=== PATIENT | female | born 1945 | race Caucasian/White ===

== ENCOUNTER 2017-01-15 09:55 | Emergency (ER) | payer MEDICARE, BC ==
--- NOTE | 2017-01-15 11:25 | CT REPORT ---
HISTORY: Headache. COMPARISON: None. TECHNIQUE: Axial non-contrast images obtained from skull vertex through foramen magnum. Dose reduction technique was utilized. FINDINGS: The ventricles, sulci and cisterns are prominent, suggesting mild cerebral atrophy. There are a few, scattered foci of low attenuation within the periventricular and subcortical white matter which are n onspecific in appearance. There is no extra axial fluid collection. No intra-axial hemorrhage is seen . There is no hydrocephalus. No mass lesion is identified. Clark white differentiation adequate, the re is no infarction. No midline shift is identified. The paranasal sinuses are clear. The mastoids appear well aerated. The bones and soft tissues appear unremarkable. IMPRESSION: Scattered foci of low attenuation within the subcortical and periventricular white matter are nonspec ific in appearance, but likely reflect the sequela of small vessel ischemic disease in a patient of t his age. Mild cerebral atrophy. No evidence of acute intracranial hemorrhage or large vessel acute territorial infarct. Final Electronic Signature: This report was electronically signed by Jose A Mireles MD on 01/16/20 17 11:23 AM. estela /
[2017-01-15 11:28] LABS: BASOPHIL# 0.1 X 10^3uL (0.0-0.1); BASOPHILS 1.3 % (0.0-2.0); EOSINOPHILS 5.4 % (0.0-6.0); EOSINOPHILS# 0.2 X 10^3uL (0.0-0.4); HEMATOCRIT 50.8 % (36.0-48.0); HEMOGLOBIN 17.8 g/dL (12.0-16.0); LYMPHOCYTES# 2.2 X 10^3uL (0.8-3.8); MEAN CELL VOLUME 88.4 fL (80.0-100.0); MEAN CORPUS. HGB CONCENTRATION 35.1 g/dL (32.0-36.0); MEAN PLATELET VOLUME 8.1 fL (7.4-10.4); MONOCYTES 7.8 % (2.0-10.0); MONOCYTES# 0.4 X 10^3uL (0.2-1.0); NEUTROPHILS 34.5 % (54.0-75.0); NEUTROPHILS# 1.6 X 10^3uL (2.6-6.7); RED BLOOD COUNT 5.75 X 10^6uL (4.20-6.10); RED CELL DISTRIBUTION WIDTH 13.4 % (11.5-14.5); WHITE BLOOD COUNT 4.5 X 10^3uL (3.9-10.7)
[2017-01-15 11:37] LABS: A/G RATIO 1.2; ALBUMIN 4.6 g/dL (3.5-5.0); BILIRUBIN, TOTAL 0.7 mg/dL (0.2-1.3); CALCIUM 9.5 mg/dL (8.4-10.2); CREATININE 1.1 mg/dL (0.5-1.0); POTASSIUM 4.7 mmol/L (3.5-5.1); TOTAL PROTEIN 8.4 g/dL (6.3-8.2)
--- NOTE | 2017-01-15 13:02 | ER PHYSICIAN DOCUMENTATION ---
Physician Documentation [facility] Name:Kiara Gallagher Age:71 yrs Sex:Female :1945 Arrival Date:01/15/2017 Time:09:55 Bed5 Private MD:Elvin Welch ED, Tom Disposition: 01/15/17 12:54 Discharged to Home/Self Care. Impression: Acute Headache, Dehydration. - Condition is Good. - Discharge Instructions: HEADACHE, Unspecified. - Medical Reconciliation form form. - Follow up: Elvin Welch DO; When: 2 - 3 days; Reason: Recheck today's complaints, Continuance of care. - Problem is new. - Symptoms are unchanged. - Notes: Drink plenty of fluids. HPI: 01/15 10:30 This 71 yrs old Female presents to ER via Private Vehicle with complaints of tl1 HEAD PRESSURE, Dizziness. 10:30 The patient presents with lightheadedness. Associated signs and symptoms: Pertinent tl1 positives: headache, nausea. 11:03 She is a vague historian. History obtained with the help of her . She was well tl1 until 2 nights ago when she had the abrupt onset of a sever bitemporal throbbing pain which kept her up all night. The headache subsided somewhat yesterday, but bothered her again last night and b/c of the persistence, along with some nausea, poor po intake and lightheadedness on standing she his BIB her for eval. No trauma. No f/c/s. No new abrupt visual changes, gait problems or spinning sensation. No jaw claudication. No hearing problems or tinnitus. PCP is Dr Welch. Denies prior brain imaging. She and her are concerned about possible dementia.. Historical: - Allergies: No known drug Allergies; - Home Meds: 1. Lyrica Oral 2. Percocet Oral 3. Zoloft Oral - PMHx: ARTHRITIS; fibermyalgia; HYPOTHYROIDISM; - Ebola Screening: : Patient denies exposure to infectious person. Patient denies travel to an Ebola-affected area in the 21 days before illness onset. . - Immunization history: Pneumococcal vaccine status is unknown. ROS: 11:09 Neuro: Positive for headache. tl1 11:09 All other systems are negative. Exam: 11:10 Constitutional: This is a well developed, well nourished patient who is awake, alert, tl1 and in no acute distress. Head/Face: Normocephalic, atraumatic. Eyes: Pupils equal round and reactive to light, extra-ocular motions intact. Lids and lashes normal. Conjunctiva and sclera are non-icteric and not injected. Cornea within normal limits. Periorbital areas with no swelling, redness, or edema. ENT: Nares patent. No nasal discharge, no septal abnormalities noted. Tympanic membranes are normal and external auditory canals are clear. Oropharynx with no redness, swelling, or masses, exudates, or evidence of obstruction, uvula midline. Mucous membranes moist. Neck: Trachea midline, no thyromegaly or masses palpated, and no cervical lymphadenopathy. Supple, full range of motion without nuchal rigidity, or vertebral point tenderness. No Meningismus. Cardiovascular: Regular rate and rhythm with a normal S1 and S2. No gallops, murmurs, or rubs. Normal PMI, no JVD. No pulse deficits. Respiratory: Lungs have equal breath sounds bilaterally, clear to auscultation and percussion. No rales, rhonchi or wheezes noted. No increased work of breathing, no retractions or nasal flaring. Abdomen/GI: Soft, non-tender, with normal bowel sounds. No distension or tympany. No guarding or rebound. No evidence of tenderness throughout. 11:10 Skin: Warm, dry with normal turgor. Normal color with no rashes, no lesions, and no tl1 evidence of cellulitis. 11:10 Neuro: Orientation: appropriate for stated age, to person, place, time & situation. Mentation: appropriate for stated age, lucid, Memory: recent memory is impaired, Cranial nerves: grossly normal, Cerebellar function: normal finger to nose testing, Motor: moves all fours, strength is 5/5 in the right hand, left hand, right foot and left foot, Sensation: is normal, Gait: is steady. Vital Signs: 10:15 BP 141 / 90; Pulse 68; Resp 16; Temp 97.2; Pulse Ox 93% on R/A; Pain 4/10; st 12:26 BP 158 / 79; Pulse 93; Pulse Ox 98% ; st MDM: 10:40 Patient medically screened. tl1 11:11 Differential diagnosis: CVA, head injury, idiopathic dizziness, TIA, vertigo, ICH, tl1 tumor, dural venous thrombosis.. Doubt meningitis.. Data reviewed: vital signs, nurses notes, radiologic studies, CT scan, and as a result, I will discharge patient. Counseling: I had a detailed discussion with the patient and/or guardian regarding: the historical points, exam findings, and any diagnostic results supporting the discharge/admit diagnosis, lab results, the need for outpatient follow up, to return to the emergency department if symptoms worsen or persist or if there are any questions or concerns that arise at home. 01/15 11:29 Order name: CBC AUTO DIF, MDIF/RMOR IF IND; Complete Time: 12:23 EDMS 01/15 12:03 Interpretation: WHITE BLOOD COUNT 4.5; HEMOGLOBIN 17.8; HEMATOCRIT 50.8; PLATELET COUNT tl1 257. 01/15 11:38 Order name: COMPREHENSIVE METABOLIC PANEL; Complete Time: 12:23 EDMS 01/15 12:03 Interpretation: SODIUM 139; POTASSIUM 4.7; CHLORIDE 103; CARBON DIOXIDE 25; GLUCOSE 98; tl1 BLOOD UREA NITROGEN 22; CREATININE 1.1. 01/15 11:26 Order name: CAT SCAN; HEAD W/O CON [id number]; Complete Time: 12:23 EDMS 01/15 23:08 Interpretation: NAD. Changes consistent with ageing. Chronic white matter changes and tl1 mild atrophy. Dispensed Medications: 11: Drug: NS 0.9% 500 ml; Route: IV; Rate: bolus; Site: right antecubital; st 11:47 Follow up: IV Status: Completed infusion; IV Intake: 700ml st 12:03 Drug: NS 0.9% 500 ml; Route: IV; Rate: bolus; Site: right antecubital; st 12:27 Follow up: IV Status: Completed infusion; IV Intake: 300ml st Signatures: Kristi Feldman, RN Hossein Fowler MD MD tl1
--- NOTE | 2017-01-15 13:02 | ER NURSING DOCUMENTATION ---
Nurse's Notes [facility] Name:Kiara Gallagher Age:71 yrs Sex:Female :1945 Arrival Date:01/15/2017 Time:09:55 Bed5 Private MD:Elvin Welch Diagnosis:Acute Headache;Dehydration Presentation: 01/15 10:06 Presenting complaint: Patient states: pt has a bad headache that started yesterday. she st has had some vision blurring on and off. pt denies any weakness however her lower extremities are weak on assessment. Transition of care: Home. 10:06 Acuity: LATRICE 2 st 10:06 Method Of Arrival: Private Vehicle st Triage Assessment: 10:12 General: Appears in no apparent distress, Behavior is cooperative. Pain: Complains of st pain in base of the skull Pain currently is 4 out of 10 on a pain scale. Pain began 1 day ago. EENT: Eyes eyes are able to fallow a finger with out any troubles. . pt states she has had some blurred vision but does not at this point in time. . Neuro: Level of Consciousness is awake, alert, Oriented to person, place, time, event, Label Cutter are equal bilaterally pt has weak leg lifts and weak foot pushes and pulls. pt denies any new weakness. . Cardiovascular: No deficits noted. Respiratory: No deficits noted. GI: No deficits noted. Historical: - Allergies: No known drug Allergies; - Home Meds: 1. Lyrica Oral 2. Percocet Oral 3. Zoloft Oral - PMHx: ARTHRITIS; fibermyalgia; HYPOTHYROIDISM; - Ebola Screening: : Patient denies exposure to infectious person. Patient denies travel to an Ebola-affected area in the 21 days before illness onset. . - Immunization history: Pneumococcal vaccine status is unknown. Screenin:16 Infectious Disease Risk None. Abuse screen: Denies threats or abuse. Denies injuries st from another. Nutritional screening: No deficits noted. Assessment: 11:48 General: pt states her pain is coming back. that is is about a 4/10.. st Vital Signs: 10:15 BP 141 / 90; Pulse 68; Resp 16; Temp 97.2; Pulse Ox 93% on R/A; Pain 4/10; st 12:26 BP 158 / 79; Pulse 93; Pulse Ox 98% ; st ED Course: 09:57 Patient arrived in ED. ama 09:57 Elvin Welch DO is Private Physician. ama 10:06 Kristi Feldman RN is Primary Nurse. st 10:[address] 10:16 Valuables Remains with patient Patient has correct armband on for positive st identification. Bed in low position. 10:41 Hossein Geiger MD is Attending Physician. tl1 11:[address] pm1 11:13 Patient [address] back from [address]. pm1 11:20 Inserted peripheral IV: 20 gauge in right antecubital area and blood collected. st 12:54 Elvin Welch DO is Referral Physician. tl1 Administered Medications: 11:27 Drug: NS 0.9% 500 ml; Route: IV; Rate: bolus; Site: right antecubital; st 11:47 Follow up: IV Status: Completed infusion; IV Intake: 700ml st 12:03 Drug: NS 0.9% 500 ml; Route: IV; Rate: bolus; Site: right antecubital; st 12:27 Follow up: IV Status: Completed infusion; IV Intake: 300ml st Intake: 11:47 IV: 700ml; Total: 700ml. st 12:27 IV: 300ml; Total: 1000ml. st Outcome: 12:54 Discharge ordered by . tl1 12:56 IV D/Richar st 13:00 Discharged to home ambulatory. st 13:00 Condition: improved 13:00 Discharge instructions given to patient, Instructed on discharge instructions, follow up and referral plans. and the need to drink watter. 13:01 Patient [address] the ED. st 01/16 11:51 Discharge F/U Call: Spoke with: patient. Overall Care on a scale of 1-10 with 10 ma being the best care, you rate our care as: Other comments: States was satisfied and that care was good Signatures: Kristi Feldman RN RN st Abuso, Melanie RN Jarrett Garcia ma pm1 Charli Barriga, Reg Reg Hossein Enriquez MD MD tl1
== END 2017-01-15 13:02 | disposition home or self-care (01) ==
LOC: ER 09:55
DX: R51 Headache (principal); E86.0 Dehydration; R42 Dizziness and giddiness; R11.0 Nausea; Z79.899 Other long term (current) drug therapy
CPT/HCPCS: 70450; 80053; 85025; 96360; 99284